=== PATIENT | male | born 1995 | race Caucasian/White ===

== ENCOUNTER 2017-03-23 20:23 | Emergency (ER) | payer SELFPAY ==
[~2017-03-23] VITALS: Ht 177.8 cm; Wt 64.0 kg
[2017-03-24 01:08] VITALS: BP 114/72
== END 2017-03-24 01:08 | disposition home or self-care (01) ==
LOC: ED 20:23
DX: H52.10 Myopia, unspecified eye (principal)
CPT/HCPCS: 82962; J2550; J7030